=== PATIENT | male | born 1960 | race Caucasian/White ===

== ENCOUNTER → 2024-07-14 | Outpatient (CLI) | payer BC ==
--- NOTE | 2024-07-14 09:53 | CT ---
EXAMINATION TYPE: CT urogram wo/w con DATE OF EXAM: 07/14/2024 9:31 AM COMPARISON: Noner CLINICAL INDICATION: Male, 64 years old with history of R31.0 gross hematuria; PHH, Gross hematuria, kidney stones, rule out bladder ca TECHNIQUE: Urogram with imaging of the abdomen and pelvis. Coronal and sagittal reformats were performed. 2D and 3D reconstructions are performed to assist visualization of the urinary tract on a separate workstat ion. Contrast used:100 mL of Isovue 370 with IV Contrast, Oral contrast used: None. CT DLP: 2291.50 mGycm, Automated exposure control for dose reduction was used. FINDINGS: LOWER CHEST: 5 mm left lower lobe pulmonary nodule. Sternotomy wires partially visualized. GENITOURINARY: RIGHT KIDNEY AND URETER: No calculi. No hydronephrosis or hydroureter. No renal mass or other lesions . No urothelial lesions: no filling defect, dilation, stricture or wall thickening. LEFT KIDNEY AND URETER: No calculi. No hydronephrosis or hydroureter. No renal mass or other lesions. No urothelial lesions: no filling defect, dilation, stricture or wall thickening. URINARY BLADDER: There is a mass near the right ureteral orifice measuring up to 30 x 22 mm somewhat pedunculated. REPRODUCTIVE: Unremarkable. ABDOMEN LIVER: Unremarkable. GALLBLADDER AND BILE DUCTS: Unremarkable PANCREAS: Unremarkable. SPLEEN: Unremarkable. ADRENAL GLANDS: Unremarkable. STOMACH AND BOWEL: . No evidence of bowel obstruction. Appendix is visualized and normal. PERITONEUM: No evidence of pneumoperitoneum, free fluid, or adenopathy. VASCULATURE: Mild atherosclerotic calcifications are present throughout the abdominal aorta and its b ranches. No evidence of aortic aneurysm. MUSCULOSKELETAL: No acute osseous abnormalities. Mild disc degeneration changes are present throughou t the thoracolumbar spine. Slight grade 1 anterolisthesis of L4 on L5. LYMPH NODES: No gross evidence for lymphadenopathy. SOFT TISSUE/ABDOMINAL WALL: Unremarkable IMPRESSION: 1. There is a mass near the right ureteral orifice measuring up to 30 x 22 mm somewhat pedunculated. Urologic evaluation and biopsy should be considered. 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 No greater than 1.0 cm in short axis lymph nodes identified to suggest metastatic disease. 2. Lower lobe 5 mm pulmonary nodule likely incidental, consider surveillance imaging. [facility], , 07/14/2024 9:51 AM
== END | disposition home or self-care (01) ==
LOC: RADCTMAIN 08:21
PROVIDERS: ATTEND Family Medicine
DX: N20.0 Calculus of kidney (principal); R31.0 Gross hematuria; R91.1 Solitary pulmonary nodule
CPT/HCPCS: 74178; 74400; Q9967